=== PATIENT | female | born 1980 ===

== ENCOUNTER 2024-02-23 09:59 | Day surgery (SDC) | payer OTHER ==
[~2024-02-23] VITALS: Ht 157.5 cm; Wt 63.7 kg
[~2024-02-23 09:59] MED LIST: LR 1,000 ML IV SCH
[2024-02-23] MEDS ORDERED: hydrALAZINE 20 MG/ML 1 ML VIAL IV PRN (10:30)
[2024-02-23] MEDS ORDERED: droPERidol 2.5 MG/ML 2 ML VIAL IV PRN (10:30)
[2024-02-23] MEDS ORDERED: Ondansetron 4 MG/2 ML VIAL IV PRN ×2 (10:30→15:30)
[2024-02-23] MEDS ORDERED: fentaNYL 50 MCG/ML 1 ML SYRINGE/VIAL [PACU/SDC ONLY] IV PRN (10:30)
[2024-02-23] MEDS ORDERED: HYDROmorphone 1 MG/1 ML SYRINGE [PACU/SDC ONLY] IV PRN (10:30)
[2024-02-23] MEDS ORDERED: dexAMETHasone 10 MG/ML VIAL ONE (10:35)
[2024-02-23] MEDS ORDERED: Ketorolac 30 MG/ML VIAL ONE (10:35)
[2024-02-23] MEDS ORDERED: fentaNYL 50 MCG/ML 2 ML VIAL ONE (10:35)
[2024-02-23] MEDS ORDERED: Ondansetron 4 MG/2 ML VIAL ONE (10:35)
[2024-02-23] MEDS ORDERED: Rocuronium 50 MG/5 ML Multi-Dose VIAL ONE (10:35)
[2024-02-23] MEDS ORDERED: Lidocaine PF 2% (20 MG/ML) 5 ML VIAL ONE (10:35)
[2024-02-23 10:48] LABS: HEMATOCRIT 44.6 % (37.0-47.0); HEMOGLOBIN 14.7 g/dl (12.5-16.0); MEAN CELL VOLUME 92 fl (80.0-100.0); MEAN CORPUSCULAR HEMOGLOBIN 30 pg (27-31); MEAN CORPUSCULAR HGB CONC 33 g/dl (33.0-37.0); MEAN PLATELET VOLUME 11.5 fl (7.4-10.4); PLATELET COUNT 204 K/mm3 (130-400); RED BLOOD COUNT 4.87 M/mm3 (4.10-5.30)
[2024-02-23 10:52] VITALS: BP 95/68; PULSE 66; TEMP 97.5
[2024-02-23] MEDS ORDERED: Indocyanine Green 12.5 MG in Water For Injection,Sterile 2.5 ML IV ONE (11:00)
[2024-02-23 11:10] LABS: ALANINE AMINOTRANSFERASE 24 U/L (0-55); ALBUMIN 4.3 g/dL (3.5-5.0); ALKALINE PHOSPHATASE 119 U/L (40-150); ANION GAP 20 mmol/L (7-16); AST,SGOT 27 U/L (5-34); CALCIUM 10.1 mg/dL (8.4-10.2); CHLORIDE 101 mEq/L (98-107); CREATININE, serum 0.74 mg/dL (0.57-1.11); GLUCOSE 77 mg/dL (70-99); POTASSIUM 3.5 mEq/L (3.5-4.5); SODIUM 141 mEq/L (136-145); TOTAL PROTEIN 8.1 g/dl (6.2-8.1)
[2024-02-23 11:11] LABS: BLOOD UREA NITROGEN < 5 mg/dL (7-19)
--- NOTE | 2024-02-23 12:11 | NUR ---
PATIENT WAS ADMITTED TO ROOM 7 AMBLATORY ACCOMPANIED BY LENIN. PATIENT VOICES UNDERSTANDING OF SURGERY AND CONSENTS SIGNED. IVF STARTED AND LABS DRAWN ORDERED. RESTING ON CART AND AWAITS SURGERY. PATIENT IS FROM [place] BUT STATES THAT SHE DOES SPEAK AND UNDERSTAND [place].
[2024-02-23] MEDS ORDERED: ePHEDrine 50 MG/ML VIAL ONE (14:22)
[2024-02-23] MEDS ORDERED: NORCO 325 MG-51 TAB PO (15:25)
[2024-02-23] MEDS ORDERED: ZOFRAN 4MG T4 MG/TAB PO (15:25)
[2024-02-23] MEDS ORDERED: Ibuprofen 600 MG TAB PO PRN (15:30)
--- NOTE | 2024-02-23 16:10 | NUR ---
PATIENT RETURNS TO ROOM 7 PER CART AND AROUSES TO VERBAL STIMULI. BANDAIDS X4 ON ABDOMEN COVERING INCISIONAL SITES CLEAN AND DRY. IVF INFUSING. DAUGHTER IN ROOM. CALL LIGHT IN REACH AND ALLOWED TO REST. COOL CLOTH ON FOREHEAD FOR COMPLAINTS OF DIZZINESS. OFFERS NO COMPLAINTS OF PAIN OR NAUSEA.
[2024-02-23 16:18] VITALS: BP 92/54; PULSE 62; TEMP 96.8
[2024-02-23 16:30] VITALS: BP 91/52; PULSE 60
[2024-02-23 16:40] VITALS: BP 87/51; PULSE 64
[2024-02-23 16:55] VITALS: BP 89/54; PULSE 62
--- NOTE | 2024-02-23 16:55 | NUR ---
MORE AWAKE AND TALKING WITH DAUGHTER. TOLERATED APPLE JUICE. DENIES NEED FOR PAIN MEDICATIONS WHEN ASKED. DENIES NAUSEA. BANDAIDS ON ABDOMINAL INCISIONS DRY.
--- NOTE | 2024-02-23 17:03 | NUR ---
IV DISCONTINUED AND ASSISTED UP TO THE BATHROOM. GAIT IS STEADY. VOIDS AND RETURNS TO ROOM. ASSISTED WITH DRESSING BY DAUGHTER. 1719 DISCHARGE INSTRUCTIONS WERE GIVEN AND SIGNED. BOTH DAUGHTER AND PATIENT VOICE UNDERSTANDING OF THESE. 1724 PATIENT DISCHARGED TO HOME DRIVEN BY DAUGHTER PER PRIVATE VEHICLE AND TAKEN TO CAR PER WHEELCHAIR AND ASSISTED INTO CAR WITH DISMISSAL INSTRUCTIONS IN HAND. INSTRUCTED THAT SCRIPTS FOR NORCO AND ZOAN WILL BE AT [facility] IN [place]
== END 2024-02-23 17:24 | disposition home or self-care (01) ==
LOC: SDCO 09:59
PROVIDERS: Surgery
DX: K80.00 Calculus of gallbladder with acute cholecystitis without obstruction (principal); K83.8 Other specified diseases of biliary tract
CPT/HCPCS: J0665; J1100; J1885; J2405; J2704; J3010; J7120